=== PATIENT | male | born 1970 | race Caucasian/White ===

== ENCOUNTER 2017-05-03 06:16 | Emergency (ER) | payer OTHER ==
[~2017-05-03] VITALS: Ht 175.3 cm; Wt 129.0 kg
[2017-05-03] MEDS ORDERED: NORCO 5/3251 TABLET PO (07:39)
[2017-05-03 08:08] VITALS: BP 164/106
== END 2017-05-03 08:09 | disposition home or self-care (01) ==
LOC: EME 06:16
DX: K08.89 Other specified disorders of teeth and supporting structures (principal); K03.81 Cracked tooth
CPT/HCPCS: 99281; 99283